=== PATIENT | female | born 1965 | race Caucasian/White ===

== ENCOUNTER 2021-02-18 16:28 | Emergency (ER) | payer OTHER ==
[2021-02-18] MEDS ORDERED: Diphtheria,Pertussis(Acell),Tetanus Vaccine 0.5 ML Syringe IM ONE (17:00)
[2021-02-18] MEDS ORDERED: Bacitracin Oint 1 GM U/D Packet TOP ONE (17:00)
[2021-02-18] MEDS ORDERED: Acetaminophen 500 MG Tab PO ONE (17:07)
--- NOTE | 2021-02-18 17:07 | EDM.PDOC ---
ED HPI GENERAL MEDICAL PROBLEM - General Chief Complaint: Laceration Stated Complaint: LACERATION ON FINGER ON RT HAND Time Seen by Provider: 02/18/21 16:55 Source of Information: Reports: Patient, RN History Limitations: Reports: No Limitations - History of Present Illness INITIAL COMMENTS - FREE TEXT/NARRATIVE: Just prior to arrival patient was cutting items in her kitchen in accidentally sliced the second digit of her right hand. Patient applied pressure and came to the ER. Patient thinks she is current on her tetanus. Patient concerned about nerve damage. 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) Associated Symptoms: Reports: No Other Symptoms - Related Data Allergies Allergy/AdvReac Type Severity Reaction Status Date / Time latex Allergy Redness Verified 02/18/21 16:49 Home Meds: Home Meds Cetirizine [ZyrTEC] 10 mg PO DAILY 06/04/18 [History] Cholecalciferol (Vitamin D3) [Vitamin D3] 2,000 units PO DAILY 06/04/18 [History] DULoxetine HCl [Cymbalta] 60 mg PO DAILY 06/04/18 [History] Gabapentin [Neurontin] 300 mg PO TID 06/04/18 [History] Montelukast Sodium [Singulair] 1 tab PO DAILY 06/04/18 [History] Albuterol Sulfate 1 dose IH BEDTIME 02/18/21 [History] Past Medical History HEENT History: Reports: Allergic Rhinitis, Impaired Vision Cardiovascular History: Reports: SOB on Exertion Respiratory History: Reports: Asthma, COPD, Other (See Below) Other Respiratory History: emphsyma Gastrointestinal History: Reports: GERD Genitourinary History: Reports: None 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 , , 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 Musculoskeletal History: Reports: Arthritis Neurological History: Reports: Other (See Below) Psychiatric History: Reports: Depression, Suicidal Ideation Endocrine/Metabolic History: Reports: Obesity/BMI 30+, Vitamin D Deficiency - Infectious Disease History Infectious Disease History: Reports: Chicken Pox, Measles, Mumps - Past Surgical History Head Surgeries/Procedures: Reports: None HEENT Surgical History: Reports: None Cardiovascular Surgical History: Reports: None Respiratory Surgical History: Reports: None GI Surgical History: Reports: Colonoscopy Female Surgical History: Reports: Other (See Below) Other Female Surgeries/Procedures: left salpingo Endocrine Surgical History: Reports: None Neurological Surgical History: Reports: None Musculoskeletal Surgical History: Reports: Other (See Below) Other Musculoskeletal Surgeries/Procedures:: left thumb Dermatological Surgical History: Reports: None Social & Family History - Caffeine Use Caffeine Use: Reports: Soda ED ROS GENERAL - Review of Systems Review Of Systems: See Below Musculoskeletal: Reports: Joint Pain (Second digit right hand laceration), Joint Swelling Skin: Reports: Erythema (Second digit right hand), Wound Neurological: Reports: No Symptoms ED EXAM, SKIN/RASH Exam: See Below Text/Narrative:: 2 cm laceration second digit right hand thumb side of finger. Area cleansed to the base of the laceration without signs of tendon or bone involvement. Lidocaine 1% 2 cc utilized to anesthetize area. Patient consented to laceration repair of 3 sutures with 4-0 nylon. Patient tolerated without difficulty. CMS intact distally to the site. Patient with flexion and extension post suture repair. Bacitracin applied with Band-Aid. Patient instructed to keep area covered while working in dirty areas removal of suture in approximately 10 days. Exam Limited By: No Limitations General Appearance: Alert, WD/WN, No Apparent Distress Peripheral Pulses: 2+: Radial (L), Radial (R) Extremities: Normal Range of Motion, Normal Capillary Refill, Joint Swelling, Redness Neurological: Alert, Oriented, CN II-XII Intact, Normal Cognition Psychiatric: Normal Affect Skin: Warm, Dry, Wound/Incision (2 cm lack second digit right hand) Location, Skin: Upper Extremity, Right Characteristics: Linear Associated features: Swelling Course - Vital Signs Text/Narrative:: Vital signs stable patient afebrile Last Recorded V/S: Last Vital Signs Temp 36.6 C 02/18/21 16:51 Pulse 82 02/18/21 16:51 Resp 12 02/18/21 16:51 BP 137/77 02/18/21 16:51 Pulse Ox 98 02/18/21 16:51 - Orders/Labs/Meds Meds: Medications Discontinued Medications Generic Name Dose Route Start Last Admin Trade Name Freq PRN Reason Stop Dose Admin Acetaminophen 1,000 mg 02/18/21 17:07 02/18/21 17:10 Acetaminophen 500 Mg Tab PO 02/18/21 17:08 1,000 mg ONETIME ONE Administration Bacitracin 1 dose 02/18/21 17:00 02/18/21 17:05 Bacitracin Oint 1 Gm U/D Packet TOP 02/18/21 17:01 1 dose ONETIME ONE Administration Diphtheria/Tetanus/Acell Pertussis 0.5 ml 02/18/21 17:00 02/18/21 17:06 Diphtheria,Pertussis(Acell),Tetanus Vaccine 0.5 Ml Syringe IM 02/18/21 17:01 0.5 ml .ONCE ONE Administration Lidocaine HCl 5 ml 02/18/21 16:59 02/18/21 17:07 Lidocaine 1% 5 Ml Sdv INJECT 02/18/21 17:00 5 ml ONETIME ONE Administration - Re-Assessments/Exams Free Text/Narrative Re-Assessment/Exam: 02/18/21 17:31 2 cm lack cleaned to wound bed base with no visible tendon or bone involvement. 2 cc of 1% lidocaine utilized to anesthetize area. 3 four-point 0 sutures used to close the wound. Covered with bacitracin and Band-Aid. Patient instructed to follow-up with primary care provider in 10 days for suture removal. Patient instructed to report any signs or symptoms of infection joint pain inability to flex finger. Patient had good CMS post injury following suture insertion. Patient able to flex finger without difficulty. 02/18/21 17:34 Tetanus addressed and administered. Patient is up-to-date Departure - Departure Time of Disposition: 17:40 Disposition: Home, Self-Care 01 Clinical Impression: Laceration of index finger of right hand without complication - Discharge Information *PRESCRIPTION DRUG MONITORING PROGRAM REVIEWED*: Not Applicable *COPY OF PRESCRIPTION DRUG MONITORING REPORT IN PATIENT LASHAE: Not Applicable Instructions: Laceration Care, Adult Referrals: PCP,None [Primary Care Provider] - Forms: ED Department Discharge Additional Instructions: Move all of sutures in 10 days. Report any signs or symptoms of infection. Tetanus is up-to-date. Care Plan Goals: Minimize risk of infection by keeping area clean and dry covered well in dirty areas. Return to clinic in 10 days for sutures to be removed. Sepsis Event Note (ED) - Evaluation Sepsis Screening Result: No Definite Risk - Focused Exam Vital Signs: Vital Signs Temp Pulse Resp BP Pulse Ox 02/18/21 16:51 36.6 C 82 12 137/77 98 02/18/21 16:45 36.6 C 82 12 137/77 98
== END 2021-02-18 17:40 | disposition home or self-care (01) ==
LOC: JP.ED 16:28
DX: S61.210A Laceration without foreign body of right index finger without damage to nail, initial encounter (principal); J44.9 Chronic obstructive pulmonary disease, unspecified; E66.9 Obesity, unspecified; Z68.41 Body mass index [BMI] 40.0-44.9, adult; Z91.040 Latex allergy status; Z23 Encounter for immunization; W26.8XXA Contact with other sharp object(s), not elsewhere classified, initial encounter; Y92.000 Kitchen of unspecified non-institutional (private) residence as the place of occurrence of the external cause
CPT/HCPCS: 12001; 90471; 90715; 99282; A9270

== ENCOUNTER 2021-09-03 09:09 | Emergency (ER) | payer OTHER ==
--- NOTE | 2021-09-03 09:43 | EDM.PDOC ---
ED HPI GENERAL MEDICAL PROBLEM - General Chief Complaint: Bite:Animal, Insect Stated Complaint: HAND INJURY , WORK COMP Time Seen by Provider: 09/03/21 09:34 Source of Information: Reports: Patient, RN Notes Reviewed History Limitations: Reports: No Limitations - History of Present Illness INITIAL COMMENTS - FREE TEXT/NARRATIVE: 55-year-old female presents emergency department today following a cat bite injury that happened to her right hand yesterday this happened at work she works at the [facility] [place] she does have some edema and redness around the right hand it is predominantly between digits 1 and 2 is where she is having pain in the bite occurred Bilateral Hand Pain Score (Numeric/FACES): 10 - Related Data Allergies Allergy/AdvReac Type Severity Reaction Status Date / Time latex Allergy Redness Verified 09/03/21 09:21 Home Meds: Home Meds Cetirizine [ZyrTEC] 10 mg PO DAILY 06/04/18 [History] Cholecalciferol (Vitamin D3) [Vitamin D3] 2,000 units PO DAILY 06/04/18 [History] DULoxetine HCl [Cymbalta] 60 mg PO DAILY 06/04/18 [History] Gabapentin [Neurontin] 300 mg PO TID 06/04/18 [History] Montelukast Sodium [Singulair] 1 tab PO DAILY 06/04/18 [History] Albuterol Sulfate 1 dose IH BEDTIME 02/18/21 [History] Past Medical History HEENT History: Reports: Allergic Rhinitis, Impaired Vision Cardiovascular History: Reports: SOB on Exertion Respiratory History: Reports: Asthma, COPD, Other (See Below) Other Respiratory History: emphsyma Gastrointestinal History: Reports: G[employer]D [employer] 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 , , 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 Musculoskeletal History: Reports: Arthritis Neurological History: Reports: Brain Injury, Other (See Below) Psychiatric History: Reports: Depression, Suicidal Ideation Endocrine/Metabolic History: Reports: Obesity/BMI 30+, Vitamin D Deficiency - Infectious Disease History Infectious Disease History: Reports: Chicken Pox, Measles, Mumps - Past Surgical History Head Surgeries/Procedures: Reports: None HEENT Surgical History: Reports: None Cardiovascular Surgical History: Reports: None Respiratory Surgical History: Reports: None GI Surgical History: Reports: Colonoscopy Female Surgical History: Reports: Other (See Below) Other Female Surgeries/Procedures: left salpingo Endocrine Surgical History: Reports: None Neurological Surgical History: Reports: None Musculoskeletal Surgical History: Reports: Other (See Below) Other Musculoskeletal Surgeries/Procedures:: left thumb Dermatological Surgical History: Reports: None Social & Family History - Tobacco Use Tobacco Use Status *Q: Never Tobacco User Second Hand Smoke Exposure: No - Caffeine Use Caffeine Use: Reports: Coffee - Recreational Drug Use Recreational Drug Use: No ED ROS GENERAL - Review of Systems Review Of Systems: See Below Constitutional: Denies: Fever, Chills Musculoskeletal: Reports: Hand Pain Skin: Reports: Erythema, Wound ED EXAM, ANIMAL BITE - Physical Exam Exam: See Below Text/Narrative:: Examination the right hand she does have puncture wounds on the dorsal surface of the hand there is an open wound across the thenar eminence on the palmar surface it is approximately 4 mm in length there is some thick purulent discharge present there is some edema appreciated in this area it there is erythema it is warm to the touch she has full range of motion all digits full range of motion of the wrist radial pulses +2 sensation is intact Exam Limited By: No Limitations General Appearance: Alert, WD/WN, No Apparent Distress Course - Vital Signs Last Recorded V/S: Last Vital Signs Temp 98.3 F 09/03/21 09:19 Pulse 89 09/03/21 09:19 Resp 16 09/03/21 09:19 BP 155/67 H 09/03/21 09:19 Pulse Ox 98 09/03/21 09:19 Departure - Departure Time of Disposition: 09:42 Disposition: Home, Self-Care 01 Condition: Fair Clinical Impression: Cat bite of right hand Qualifiers: Encounter type: initial encounter Qualified Code(s): S61.451A - Open bite of right hand, initial encounter; W55.01XA - Bitten by cat, initial encounter - Discharge Information Instructions: Animal Bite, Adult, [id number] Referrals: Jennifer Barnes MD [Primary Care Provider] - Forms: ED Department Discharge, ED Return to Work/School Form Additional Instructions: Take full course of antibiotics, please follow-up with your primary care in the next 2 to 3 days for reevaluation call or return to the emergency department worsening of symptoms Sepsis Event Note (ED) - Evaluation Sepsis Screening Result: No Definite Risk - Focused Exam Vital Signs: Vital Signs Temp Pulse Resp BP Pulse Ox 09/03/21 09:19 98.3 F 89 16 155/67 H 98 - Assessment/Plan Plan: Assessment Acuity = acute Site and laterality = cat bite right hand Etiology = [facility] Vaccines up-to-date Manifestations = none Location of injury = work Lab values = none Plan Plan is to treat empirically Augmentin 875 p.o. twice daily x14 days and then follow-up with primary care in 2 to 3 days for further evaluation This note was dictated using [employer] voice recognition software please call with any questions on syntax or grammar.
== END 2021-09-03 10:04 | disposition home or self-care (01) ==
LOC: JP.ED 09:09
DX: S61.451A Open bite of right hand, initial encounter (principal); J44.9 Chronic obstructive pulmonary disease, unspecified; Z91.040 Latex allergy status; Z79.899 Other long term (current) drug therapy; W55.01XA Bitten by cat, initial encounter
CPT/HCPCS: 99283

== ENCOUNTER 2021-09-17 18:45 | Emergency (ER) | payer OTHER ==
[2021-09-17] MEDS ORDERED: Methocarbamol 500 MG Tab PO ONE (19:14)
[2021-09-17] MEDS ORDERED: Ketorolac 30 MG/ML SDV IM ONE (19:14)
== END 2021-09-17 20:45 | disposition home or self-care (01) ==
LOC: JP.ED 18:45
DX: S16.1XXA Strain of muscle, fascia and tendon at neck level, initial encounter (principal); J43.9 Emphysema, unspecified; M19.90 Unspecified osteoarthritis, unspecified site; E66.9 Obesity, unspecified; Z68.41 Body mass index [BMI] 40.0-44.9, adult; Z91.040 Latex allergy status; Z79.899 Other long term (current) drug therapy
CPT/HCPCS: 96372; 99283; A9270; J1885

== ENCOUNTER 2022-01-26 05:43 | Emergency (ER) | payer OTHER ==
[2022-01-26] MEDS ORDERED: Ketorolac 30 MG/ML SDV IM ONE (06:43)
[2022-01-26] MEDS ORDERED: Methocarbamol 500 MG Tab PO ONE (06:43)
== END 2022-01-26 08:25 | disposition home or self-care (01) ==
LOC: JP.ED 05:43
DX: S16.1XXA Strain of muscle, fascia and tendon at neck level, initial encounter (principal); H04.203 Unspecified epiphora, bilateral; J44.9 Chronic obstructive pulmonary disease, unspecified; E66.9 Obesity, unspecified; Z68.30 Body mass index [BMI] 30.0-30.9, adult; Z79.899 Other long term (current) drug therapy; Z91.040 Latex allergy status; X58.XXXA Exposure to other specified factors, initial encounter
CPT/HCPCS: 96372; 99282; 99283; A9270-GY; J1885

== ENCOUNTER 2023-07-06 11:22 | Emergency (ER) | payer OTHER | END 2023-07-06 15:42 | disposition home or self-care (01) | LOC: JP.ED 11:22 | DX: M62.838 Other muscle spasm (principal); J44.9 Chronic obstructive pulmonary disease, unspecified; E66.9 Obesity, unspecified; Z68.41 Body mass index [BMI] 40.0-44.9, adult; Z91.040 Latex allergy status; Z79.899 Other long term (current) drug therapy | CPT/HCPCS: 99282; 99283 ==

== ENCOUNTER 2025-06-01 15:35 | Emergency (ER) | payer OTHER ==
[2025-06-01 16:43] LABS: BASOPHILS ABSOLUTE AUTO 0.05 K/uL (0.00-0.10); BASOPHILS PERCENT AUTO 0.8 % (0.1-1.3); EOSINOPHILS ABSOLUTE AUTO 0.23 K/uL (0.00-0.40); EOSINOPHILS PERCENT AUTO 3.7 % (0.0-5.4); IMMATURE GRAN PERCENT AUTO 0.2 % (0.0-0.7); LYMPHOCYTES ABSOLUTE AUTO 2.33 K/uL (0.8-3.3); LYMPHOCYTES PERCENT AUTO 37.0 % (11.4-47.7); MONOCYTES ABSOLUTE AUTO 0.56 K/uL (0.20-0.90); MONOCYTES PERCENT AUTO 8.9 % (3.3-12.6); NEUTROPHILS ABSOLUTE AUTO 3.12 K/uL (1.0-7.6); NEUTROPHILS PERCENT AUTO 49.4 % (40.0-78.1); PLATELET COUNT,PLT 286 K/uL (130-375); RED BLOOD CELL COUNT 4.93 M/uL (3.77-5.24); WHITE BLOOD CELL COUNT,WBC 6.3 K/uL (3.2-11.0)
[2025-06-01 16:54] LABS: IMMATURE GRAN ABSOLUTE AUTO 0.01 K/uL (0.00-0.23)
[2025-06-01 17:03] LABS: A/G RATIO 1.1 (1.2-2.2); ALANINE AMINOTRANSFERASE,ALT 22 U/L (12-78); ASPARTATE AMNIOTRANSFERASE,AST 20 U/L (15-37); BILIRUBIN TOTAL 0.6 mg/dL (0.2-1.0); BLOOD UREA NITROGEN,BUN 14 mg/dL (7-18); CARBON DIOXIDE,CO2 27 mmol/L (21-32); CHLORIDE,CL 107 mmol/L (100-108); CREATININE 0.8 mg/dL (0.6-1.0); EST CRCL DRUG DOSING (CG) 57.84 mL/min; ESTIMATED GFR 85 mL/min (>60); GLUCOSE RANDOM 106 mg/dL (74-106); POTASSIUM,K 3.9 mmol/L (3.6-5.2); PROTEIN TOTAL,TP 7.2 g/dL (6.4-8.2); SODIUM,NA 142 mmol/L (140-148)
[2025-06-01 18:27] LABS: APPEARANCE,URINE SLIGHTLY CLOUDY (CLEAR); GLUCOSE,URINE NEGATIVE (NEGATIVE); OCCULT BLOOD,URINE NEGATIVE (NEGATIVE)
[2025-06-01 18:31] LABS: AMPHETAMINES SCREEN, URINE NEGATIVE (NEGATIVE); METHADONE SCREEN, URINE NEGATIVE (NEGATIVE); METHAMPHETAMINES SCREEN, URINE NEGATIVE (NEGATIVE); OXYCODONE SCREEN,URINE NEGATIVE (NEGATIVE); PROPOXYPHENE SCREEN,URINE NEGATIVE (NEGATIVE); THC SCREEN,URINE 50 NG/ML NEGATIVE (NEGATIVE)
[2025-06-01 18:33] LABS: SQUAMOUS EPITHELIAL CELLS,UR MANY /HPF; UROTHELIAL CELLS,URINE NOT SEEN /HPF
[2025-06-02 04:54] LABS: T3 FREE 2.23 pg/dL (2.18-3.98); T4 FREE 0.79 ng/dL (0.76-1.46); TSH ULTRASENSITIVE 6.545 uIU/mL (0.358-3.740)
== END 2025-06-02 11:11 ==
LOC: JP.ED 15:35
DX: T50.904A Poisoning by unspecified drugs, medicaments and biological substances, undetermined, initial encounter (principal); R41.82 Altered mental status, unspecified; J45.909 Unspecified asthma, uncomplicated; E03.9 Hypothyroidism, unspecified; Z87.891 Personal history of nicotine dependence; Z91.040 Latex allergy status; Z79.890 Hormone replacement therapy; Z79.899 Other long term (current) drug therapy
CPT/HCPCS: 36415; 80053; 80143; 80179; 80305; 80307; 81001; 84439; 84443; 84481; 85025; 87086; 99285; A9270; 99284

== ENCOUNTER 2025-06-17 05:29 | Emergency (ER) | payer OTHER ==
[2025-06-17] MEDS: Prochlorperazine 10 MG/2 ML SDV IVPUSH ONE (06:20)
[2025-06-17] MEDS: diphenhydrAMINE 50 MG/ML SDV IVPUSH ONE (06:20)
[2025-06-17] MEDS: Ketorolac 30 MG/ML SDV IVPUSH ONE (06:34)
== END 2025-06-17 07:30 | disposition home or self-care (01) ==
LOC: JP.ED 05:29
DX: G43.909 Migraine, unspecified, not intractable, without status migrainosus (principal); F43.10 Post-traumatic stress disorder, unspecified; J44.89 Other specified chronic obstructive pulmonary disease; Z91.040 Latex allergy status; Z79.899 Other long term (current) drug therapy
CPT/HCPCS: 96374; 96375; 99284; A9270; J0780; J1200; J7030